=== PATIENT | male | born 1975 | race Caucasian/White ===

== ENCOUNTER 2016-12-08 19:56 | Observation (INO) | payer BC, OTHER ==
[2016-12-08 20:14] LABS: BASOPHILS 0.6 % (0.0-2.0); EOSINOPHILS 1.4 % (0.0-6.0); EOSINOPHILS# 0.1 X 10^3uL (0.0-0.4); HEMATOCRIT 45.1 % (42.0-54.0); HEMOGLOBIN 15.4 g/dL (14.0-18.0); LYMPHOCYTES 50.9 % (20.0-40.0); LYMPHOCYTES# 4.2 X 10^3uL (0.8-3.8); MEAN CELL VOLUME 86.1 fL (80.0-100.0); MEAN CORPUS. HGB CONCENTRATION 34.2 g/dL (32.0-36.0); MEAN CORPUSCULAR HEMOGLOBIN 29.4 pg (29.0-35.0); MEAN PLATELET VOLUME 7.5 fL (7.4-10.4); MONOCYTES# 0.6 X 10^3uL (0.2-1.0); NEUTROPHILS 39.1 % (54.0-75.0); NEUTROPHILS# 3.2 X 10^3uL (2.6-6.7); PLATELET COUNT 325 X 10^3uL (130-440); RED BLOOD COUNT 5.24 X 10^6uL (4.20-6.10); RED CELL DISTRIBUTION WIDTH 11.5 % (11.5-14.5); WHITE BLOOD COUNT 8.1 X 10^3uL (3.9-10.7)
[2016-12-08] MEDS ORDERED: ONDANSETRON HCL 4 MG/2 ML VIAL ONE ×2 (20:20→20:55)
[2016-12-08 20:28] LABS: BLOOD UREA NITROGEN 14 mg/dL (9-20); CALCIUM 9.8 mg/dL (8.4-10.2); CHLORIDE 104 mmol/L (98-107); EST GLOMERULAR FILTRATION RATE > 60 mL/min; GLUCOSE 158 mg/dL (70-100); POTASSIUM 3.8 mmol/L (3.5-5.1); SODIUM 138 mmol/L (137-145)
[2016-12-08 20:30] LABS: INR 0.9
[2016-12-08] MEDS ORDERED: ceFAZolin 1 GM/10 ML VIAL ONE ×3 (20:44→21:26)
[2016-12-08] MEDS ORDERED: NORMAL SALINE MINI-BAG+ 100 ML IV ONE (20:44)
[2016-12-08] MEDS ORDERED: LIDOCAINE HCL 4% 160 MG/4 ML KIT ONE (20:54)
[2016-12-08] MEDS ORDERED: DEXAMETHASONE 10 MG/ML VIAL ONE (20:55)
[2016-12-08] MEDS ORDERED: FENTANYL 100 MCG/2 ML VIAL ONE ×2 (20:55)
[2016-12-08] MEDS ORDERED: ROCURONIUM BROMIDE 50 MG/5 ML VIAL IV ONE (20:56)
[2016-12-08] MEDS ORDERED: SUCCINYLCHOLINE CHLORIDE 200 MG/10 ML VIAL ONE (20:56)
[2016-12-08] MEDS ORDERED: METOCLOPRAMIDE HCL 10 MG/2 ML VIAL IV STA (21:13)
[2016-12-08] MEDS ORDERED: FAMOTIDINE IN SALINE, ISO-OSM 20 MG/50 ML PIGGYBACK IV SCH (21:15)
[2016-12-08] MEDS ORDERED: ONDANSETRON HCL 4 MG/2 ML VIAL IV PRN (21:16)
[2016-12-08] MEDS ORDERED: FENTANYL 100 MCG/2 ML VIAL IV PRN ×2 (21:16)
[2016-12-08] MEDS ORDERED: METOCLOPRAMIDE HCL 10 MG/2 ML VIAL ONE (21:20)
[2016-12-08] MEDS ORDERED: FAMOTIDINE IN SALINE, ISO-OSM 20 MG/50 ML PIGGYBACK IV ONE (21:20)
[2016-12-08] MEDS ORDERED: NORMAL SALINE 100 ML IV ONE (21:22)
[2016-12-08] MEDS ORDERED: NORMAL SALINE FLUSH 50 ML ONE (21:23)
[2016-12-08] MEDS ORDERED: BUPIVACAINE/EPI 0.25% 1 VIAL VIAL ONE ×2 (21:23→21:27)
[2016-12-08] MEDS ORDERED: BACITRACIN 14 APP/14 GM TUBE TOPICAL ONE (21:23)
[2016-12-08] MEDS ORDERED: BACITRACIN 50,000 UNITS VIAL IM ONE (21:24)
[2016-12-08] MEDS ORDERED: ceFAZolin 1 GM in NORMAL SALINE MINI-BAG+ 100 ML IV PRN (21:24)
--- NOTE | 2016-12-08 21:38 | ER PHYSICIAN DOCUMENTATION ---
Physician Documentation [facility] Name:Torrey Simeon Age:41 yrs Sex:Male :1975 Arrival Date:12/08/2016 Time:19:56 Bed6 Private MD: Stas Linn Disposition: 12/08/16 21:19 Admit ordered for Oumar Stoner. Preliminary diagnosis are Open Lower End of Radius Fracture, Dislocation of Elbow. - Bed requested for Operating Room. - Condition is Serious. - Problem is new. - Symptoms are unchanged. 23 HR OBS Yes Historical: - Allergies: No known drug Allergies; - Home Meds: 1. None - PMHx: None; - PSHx: ACL; JAW IMPLANT; - Tetanus: < 10 years. - Ebola Screening: : Patient negative for fever greater than or equal to 101.5 degrees Fahrenheit, and additional compatible Ebola Virus Disease symptoms. - Immunization history: Flu Vaccine < 1 year. - Social history: Smoking status: Patient states was never smoker of tobacco. Vital Signs: 12/08 20:04 BP 150 / 105; Pulse 53; Resp 18; Temp 98.3(TE); Pulse Ox 93% on R/A; Weight 79.38 kg; rh Height 5 ft. 3 in. (160.02 cm); Pain 10/10; 20:38 BP 151 / 113; Pulse 55; Resp 14; Pulse Ox 98% on 2 lpm NC; Pain 7/10; rh 21:13 BP 134 / 89; Pulse 49; Resp 14; Pulse Ox 98% on 2 lpm NC; Pain 6/10; rh 20:04 Body Mass Index 31.00 (79.38 kg, 160.02 cm) rh MDM: 20:06 Patient medically screened. 12/08 20:26 Order name: CBC AUTO DIF, MDIF/RMOR IF IND; Complete Time: 21:06 EDSD 12/08 20:29 Order name: BASIC METABOLIC PANEL; Complete Time: 21:06 [facility] 12/08 20:32 Order name: PROTIME/INR; Complete Time: 21:06 [facility] 12/09 08:22 Order name: FOREAM; [address] [place] [id number] [facility] 12/08 20:06 Order name: Pulse Ox Continuous; Complete Time: 20:08 12/08 20:06 Order name: Iv Saline Lock; Complete Time: 20:08 12/08 20:09 Order name: Oxygen; Complete Time: 20: 12/08 20:11 Order name: EKG - 12 Lead; Complete Time: 20:11 rh Dispensed Medications: 20:00 Drug: Dilaudid 1 mg; Route: IVP; Site: left antecubital; rh 20:30 Follow up: Response: Pain is decreased rh 20:08 Drug: Dilaudid 1 mg; Route: IVP; Site: left antecubital; rh 20:29 Follow up: Response: Pain is decreased rh 20:09 Drug: Zofran 4 mg; Route: IVP; Infused Over: 2 mins; Site: left antecubital; rh 20:29 Follow up: Response: No adverse reaction rh 20:15 Drug: NS 0.9% 1000 ml; Route: IV; Rate: bolus; Site: left antecubital; rh 20:34 Drug: Ancef 1 grams; Route: IVPB; Site: left antecubital; rh 21:13 Follow up: IV Status: Completed infusion; IV Intake: 100ml rh 20:35 Drug: Dilaudid 1 mg; Route: IVP; Site: left antecubital; fc 21:04 Follow up: Response: Pain is decreased rh 21:13 Drug: Pepcid 20 mg; Route: IVPB; Site: left antecubital; rh Signatures: Ronel Glass RN RN nf Meyer, John, MD MD jm Hofsess, Kindra may, [facility]
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
[2016-12-08] MEDS: ceFAZolin 1 GM in NORMAL SALINE MINI-BAG+ 100 ML IV SCH (21:45)
[2016-12-08] MEDS ORDERED: LACTATED RINGERS 1,000 ML IV SCH (22:00)
[2016-12-08] MEDS ORDERED: METOCLOPRAMIDE HCL 10 MG/2 ML VIAL IV SCH (22:00)
[2016-12-08] MEDS ORDERED: KETOROLAC TROMETHAMINE 30 MG/ML VIAL ONE (22:19)
[2016-12-08] MEDS ORDERED: DESFLURANE 240 ML BTL INHALATION ONE (23:25)
--- NOTE | 2016-12-09 00:06 | PROCEDURE NOTE: Orthopedics ---
Orthopedic Procedure note - Brief Operative Note Date of procedure: 12/08/16 Pre-Op Diagnosis: OPEN RIGHT RADIAL SHAFT FRACTURE WITH DISLOCATED ELBOW Post-op diagnosis: same Procedure: right radial shaft open reduction internal fixation with irrigation and right elbow reduction Implants: SYNTHES 3.5 MM LCP 8 HOLE PLATE 223.581 placed with. 3.5 MM CORTEX SCREWS 16 MM X3 (204.816), 18 MM X2 (204.818) AND 20MM X1 (204.820) AND 3.5MM LOCKING SCREWS SELF TAPPING 18 MM X1 (212.105) AND 20MM X1 (212.106) Anesthesia Type: General Physician: MYRIAM JULIEN Estimated Blood Loss: 25 Total Tourniquet Time (mins): 67 Specimen/Pathology: none sent Sponge/instrument count: correct X-ray/Fluoroscopy: Yes Condition: stable Disposition: PACU Narrative: The patient was brought to the OR suite and after administration of general anesthesia the right upper extremity had a well-padded tourniquet applied. The right upper extremity was then prepped and draped in a sterile fashion. A gentle reduction maneuver was applied to reduce the dislocated elbow. This was confirmed on fluoroscopic imaging. A volar incision was made in line with the flexor carpi radialis and the open wound extending both proximally and distally from the wound. This area was in communication with the bone. It was copiously irrigated with bacitracin infused normal saline with a pulsatile lavage. The ends of the bone were visualized directly intramedullary and were also irrigated and debrided. The fracture was reduced and pinned into place with 2 K wires in a crossing fashion. An 8 hole Synthes LCDC plate was positioned and both locking and nonlocking screws were utilized to maintain the fracture reduction. Orthogonal fluoroscopic imaging confirmed anatomic reduction of the fracture and optimal placement of internal fixation. The operative site was again copiously irrigated with bacitracin infused normal saline with the pulsatile lavage. The deep fascia was closed utilizing 2-0 Vicryl followed by 2-0 Vicryl subcutaneously followed by a running modified horizontal mattress suture utilizing 3-0 nylon. 2 drains were inserted through the open defect in the skin both proximally and distally. The incision was dressed with bacitracin ointment, Xeroform, 4 x 4's, ABDs, cast padding and a well-padded plaster splint in a sugar tong configuration and wrapped with an Leon bandage. The patient was transferred from the OR suite to the recovery room in stable condition.
[2016-12-09] MEDS ORDERED: DEXTROSE 5% LACTATED RINGERS 1,000 ML IV SCH (00:10)
[2016-12-09] MEDS ORDERED: VANCOMYCIN HCL 1,000 MG in NORMAL SALINE ADDVANTAGE 250 ML IV ONE (00:10)
[2016-12-09] MEDS ORDERED: ACETAMINOPHEN 325 MG TABLET PO PRN (00:10)
[2016-12-09] MEDS ORDERED: VANCOMYCIN HCL 1,000 MG/20 ML VIAL ONE (00:31)
[2016-12-09] MEDS ORDERED: NORMAL SALINE 250 ML IV ONE (00:39)
[2016-12-09] MEDS ORDERED: LACTATED RINGERS 1,000 ML IV ONE (01:02)
--- NOTE | 2016-12-09 08:07 | RADIOLOGY REPORT ---
Multiple views of the right forearm and right elbow were obtained. Initial views at 2013 hours demonstrate posterior dislocation of the elbow. There is transverse fracture of the mid shaft of the radius. There is 100% volar displacement and 1.5 cm of overriding. The ulna appears unremarkable. Limited views of the wrist are unremarkable. Additional views from the C-Arm in the operating room on the same date demonstrate interval reduction. The radius is secured with a plate and multiple screws. No new abnormality is identified. IMPRESSION: Elbow dislocation and mid shaft radius fracture with subsequent reduction and internal fixation. LUIZ
[2016-12-09] MEDS: ceFAZolin 1 GM in NORMAL SALINE MINI-BAG+ 100 ML IV SCH ×2 (09:05→15:18)
--- NOTE | 2016-12-09 09:12 | DC SUMMARY: Orthopedic Note ---
Discharge Summary: Surg/OB Provider: Date of Admission: 12/09/16 Admitting Provider: MYRIAM JULIEN DO Attending Provider: YOUSUF MACKENZIE MD Discharging Provider: MYRIAM JULIEN DO Primary Care Provider: Discharge Date: 12/09/16 - Diagnosis (1) Fracture of radial shaft, right, open Status: Acute Qualifiers: Encounter type: initial encounter Open fracture type: open type I or II Fracture morphology: comminuted Fracture alignment: displaced Qualified Code (s): S52.351B - Displaced comminuted fracture of shaft of radius, right arm, initial encounter for open fracture type I or II (2) Dislocation of right elbow Status: Acute Qualifiers: Encounter type: initial encounter Qualified Code(s): S53.104A - Unspecified dislocation of right ulnohumeral joint, initial encounter Hospital Course: Mr. GARCIA is a 41 year old male Presented on December 08 in the emergency room with an open radial shaft fracture an was taken to the operating immediately for open reduction internal of the radial shaft fracture and reduction of the elbow dislocation. The patient did receive IV antibiotics in the emergency room and did receive postoperative prophylactic antibiotics. On the date of discharge his pain was controlled with hydrocodone. He'll be discharged home today and he will follow suture removal in 8-10 days. Discharge - Patient/Caregiver Discharge Instructions Activity Level: begin elbow motion Diet: reg Overall discharge status: stable Home Medications: hydroCODone/APAP 5/325 MG [HYDROCODONE/APAP 5mg/325mg*] 2 tab PO Q3H PRN #32 tab PRN Reason: Pain, Severe Disposition: HOME, SELF-CARE Orthopedic: Discharge Phy Exam - Latest Vital Signs and I&O Latest Vital Signs/I&O: Vital Signs Temp 36.6 C 12/09/16 07:00 Pulse 59 L 12/09/16 07:00 Resp 13 12/09/16 07:00 BP 110/69 12/09/16 07:00 Pulse Ox 92 12/09/16 07:00 Intake & Output 12/08/16 12/09/16 12/09/16 17:59 05:59 17:59 Other: Urine Appearance Clear Urine Color Yellow Voiding Method Urinal - Post-Operative Exam Post-op Day: 1 Dressing Status: dry & intact Drainage Amount: none Distal Pulses: +2 Active Motor: intact Sensation: abnormal (in thumb, index, middle and ring (little finger normal))
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
[2016-12-09 11:24] VITALS: O2SAT 90
--- NOTE | 2016-12-09 12:32 | PROGRESS NOTE: Orthopedics ---
Orthopedic PN Subjective - Subjective Principal Diagnosis: s/p radius ORIF Post-op Day: 1 Ortho PN Objective Exam - Latest Vital Signs and I&O Latest Vital Signs/I&O: Vital Signs Temp 36.7 C 12/09/16 11:00 Pulse 65 12/09/16 11:00 Resp 12 12/09/16 11:00 BP 120/78 12/09/16 11:00 Pulse Ox 90 12/09/16 11:00 Intake & Output 12/08/16 12/09/16 12/09/16 17:59 05:59 17:59 Other: Urine Appearance Clear Clear Urine Color Yellow Yellow Voiding Method Urinal Urinal - Lab Labs: Laboratory Last Values WBC 8.1 X 10^3uL (3.9-10.7) 12/08/16 20:00 RBC 5.24 X 10^6uL (4.20-6.10) 12/08/16 20:00 Hgb 15.4 g/dL (14.0-18.0) 12/08/16 20:00 Hct 45.1 % (42.0-54.0) 12/08/16 20:00 MCV 86.1 fL (80.0-100.0) D 12/08/16 20:00 MCH 29.4 pg (29.0-35.0) 12/08/16 20:00 MCHC 34.2 g/dL (32.0-36.0) 12/08/16 20:00 RDW 11.5 % (11.5-14.5) 12/08/16 20:00 Plt Count 325 X 10^3uL (130-440) 12/08/16 20:00 MPV 7.5 fL (7.4-10.4) 12/08/16 20:00 Neutrophils % 39.1 % (54.0-75.0) L 12/08/16 20:00 Lymphocytes % 50.9 % (20.0-40.0) H 12/08/16 20:00 Eosinophils % 1.4 % (0.0-6.0) 12/08/16 20:00 Basophils % 0.6 % (0.0-2.0) 12/08/16 20:00 Neutrophils # 3.2 X 10^3uL (2.6-6.7) 12/08/16 20:00 Lymphocytes # 4.2 X 10^3uL (0.8-3.8) H 12/08/16 20:00 Monocytes 8.0 % (2.0-10.0) 12/08/16 20:00 Monocytes # 0.6 X 10^3uL (0.2-1.0) 12/08/16 20:00 Eosinophils # 0.1 X 10^3uL (0.0-0.4) 12/08/16 20:00 Basophils # 0.0 X 10^3uL (0.0-0.1) 12/08/16 20:00 PT 15.6 sec (13.0-16.6) 12/08/16 20:00 INR 0.9 12/08/16 20:00 Sodium 138 mmol/L (137-145) 12/08/16 20:00 Potassium 3.8 mmol/L (3.5-5.1) 12/08/16 20:00 Chloride 104 mmol/L (98-107) 12/08/16 20:00 Carbon Dioxide 22 mmol/L (22-30) 12/08/16 20:00 BUN 14 mg/dL (9-20) 12/08/16 20:00 Creatinine 1.0 mg/dL (0.7-1.3) 12/08/16 20:00 GFR Calculation > 60 mL/min 12/08/16 20:00 Glucose 158 mg/dL (70-100) H 12/08/16 20:00 Calcium 9.8 mg/dL (8.4-10.2) 12/08/16 20:00 Assessment and Plan-Ortho - Date of Encounter Date of Encounter: 12/09/16 (1) Fracture of radial shaft, right, open Status: Acute Assessment and plan: Information regarding the patient's surgery was reviewed with the patient in that on one of the screws in the plate from his open reduction internal fixation the tip of the screwdriver broke off and was stuck inside the head of the screw. It was well seated and not able to be removed. Current Visit: Yes (2) Dislocation of right elbow Status: Acute Current Visit: Yes Quality Questions - VTE Prophylaxis Assessment VTE Present on Admission?: No Patient at risk for venous thromboembolism?: Yes VTE Risk Level: Very Low Risk Pharmaceutical VTE prophylaxis contraindication reason: contraindicated Mechanical VTE prophylaxis contraindication reason: contraindicated (1) Fracture of radial shaft, right, open Qualifiers: Encounter type: initial encounter Open fracture type: open type I or II Fracture morphology: comminuted Fracture alignment: displaced Qualified Code(s ): S52.351B - Displaced comminuted fracture of shaft of radius, right arm, initial encounter for open fracture type I or II (2) Dislocation of right elbow Qualifiers: Encounter type: initial encounter Qualified Code(s): S53.104A - Unspecified dislocation of right ulnohumeral joint, initial encounter
[2016-12-09 15:37] VITALS: BP 106/68; PULSE 58; RESP 16; TEMP 98.5
== END 2016-12-09 09:22 | disposition home or self-care (01) ==
LOC: ER 19:56 → SDS 21:40 → IN 12-09 00:34
PROVIDERS: ADMIT Orthopaedic Surgery; ATTEND Family Medicine
DX: S52.351B Displaced comminuted fracture of shaft of radius, right arm, initial encounter for open fracture type I or II (principal); V18.0XXA Pedal cycle driver injured in noncollision transport accident in nontraffic accident, initial encounter; S53.104A Unspecified dislocation of right ulnohumeral joint, initial encounter
CPT/HCPCS: 76000; 80048; 85025; 85610; 96365; 96367; 96375; 99285; C1713; G0378; J0690; J1100; J1170; J1885; J2405; J2765; J3010; J3370; J7050; J7120